=== PATIENT | male | born 1985 | race Caucasian/White ===

== ENCOUNTER 2016-08-22 15:24 | Emergency (ER) | payer OTHER ==
[~2016-08-22] VITALS: Ht 193 cm; Wt 99.0 kg
[~2016-08-22 15:24] MED LIST: NAPROXEN500 MG PO; NOHOMEMEDS; PEN-VEE K,VEET500 MG PO; SEROQUEL200 MG PO
[2016-08-22] MEDS ORDERED: PERCOCET 5/31 TABLET PO (16:44)
[2016-08-22] MEDS ORDERED: AMOXICILLIN500 MG PO (16:44)
[2016-08-22 17:11] VITALS: BP 140/89
== END 2016-08-22 17:14 | disposition home or self-care (01) ==
LOC: EME 15:24
DX: K02.9 Dental caries, unspecified (principal); F17.200 Nicotine dependence, unspecified, uncomplicated
CPT/HCPCS: 99281; 99283

== ENCOUNTER 2016-10-28 23:14 | Emergency (ER) | payer OTHER ==
[~2016-10-28] VITALS: Ht 193 cm; Wt 98.0 kg
[~2016-10-28 23:14] MED LIST changes: +AMOXICILLIN500 MG PO; +PERCOCET 5/31 TABLET PO
[2016-10-28 23:46] LABS: HEMATOCRIT 42.5 % (38.0-50.0); MCH 29.6 PG (29.0-34.0); MCHC 32.9 G/DL (30.0-36.0); MCV 89.9 FL (86-99); MEAN PLAT.VOLUME 9.8 uM^3 (9.0-12.4); PLATELET COUNT 247 K/uL (156-360); RBC DIS.WIDTH-CV 13.4 % (11.8-14.6); RBC DIS.WIDTH-SD 44.7 % (39-53); RED BLOOD COUNT 4.73 M/uL (4.00-5.50); WHITE BLOOD COUNT 7.6 K/uL (4.1-10.2)
[2016-10-29] LABS: CHLORIDE 104 mEq/L (99-109); POTASSIUM 4.2 mEq/L (3.7-5.4); SODIUM 139 mEq/L (136-147)
[2016-10-29 00:01] LABS: GLUCOSE 85 mg/dL (70-99)
[2016-10-29 00:03] LABS: ANION GAP 8 MEQ/L (2-14)
[2016-10-29 00:04] LABS: SERUM ETHYL ALCOHOL < 10 mg/dL
[2016-10-29 00:05] LABS: GFR ESTIMATE (CALCULATED) > 59 mL/min/
[2016-10-29 00:07] LABS: UREA NITROGEN (BUN) 13 mg/dL (9-23)
[2016-10-29 00:08] LABS: SALICYLATE < 5.0 MG/DL (15-30)
[2016-10-29 01:38] VITALS: BP 121/81
== END 2016-10-29 01:41 | disposition home or self-care (01) ==
LOC: EME 23:14
PROVIDERS: Emergency Medicine
DX: T42.4X1A Poisoning by benzodiazepines, accidental (unintentional), initial encounter (principal); T42.8X1A Poisoning by antiparkinsonism drugs and other central muscle-tone depressants, accidental (unintentional), initial encounter; R41.82 Altered mental status, unspecified; F19.20 Other psychoactive substance dependence, uncomplicated; F17.200 Nicotine dependence, unspecified, uncomplicated; F32.9 Major depressive disorder, single episode, unspecified; F31.9 Bipolar disorder, unspecified
CPT/HCPCS: 71010; 80048; 85027; 93005; 99281; 99285; G0480; J7030

== ENCOUNTER 2016-12-02 23:30 | Emergency (ER) | payer OTHER ==
[~2016-12-02] VITALS: Ht 193 cm; Wt 95.9 kg
[2016-12-02 23:59] LABS: HEMATOCRIT 41.2 % (38.0-50.0); MCH 29.3 PG (29.0-34.0); MCHC 32.8 G/DL (30.0-36.0); MCV 89.6 FL (86-99); MEAN PLAT.VOLUME 9.7 uM^3 (9.0-12.4); PLATELET COUNT 305 K/uL (156-360); RBC DIS.WIDTH-CV 13.6 % (11.8-14.6); RBC DIS.WIDTH-SD 44.8 % (39-53); WHITE BLOOD COUNT 6.9 K/uL (4.1-10.2)
[2016-12-03 00:08] LABS: CHLORIDE 106 mEq/L (99-109); POTASSIUM 4.7 mEq/L (3.7-5.4); SODIUM 141 mEq/L (136-147)
[2016-12-03 00:10] LABS: GLUCOSE 95 mg/dL (70-99)
[2016-12-03 00:11] LABS: ANION GAP 8 MEQ/L (2-14)
[2016-12-03 00:13] LABS: SERUM ETHYL ALCOHOL < 10 mg/dL
[2016-12-03 00:14] LABS: GFR ESTIMATE (CALCULATED) > 59 mL/min/; UREA NITROGEN (BUN) 16 mg/dL (9-23)
[2016-12-03 02:51] VITALS: BP 106/65
== END 2016-12-03 03:18 | disposition home or self-care (01) ==
LOC: TRA → EME → TRA 23:30 → EDBD 23:30 → TRA 12-03 03:18
PROVIDERS: Emergency Medicine
PROC: 0HQ0XZZ Repair Scalp Skin, External Approach (ICD-10-PCS; principal; 2016-12-03)
DX: S01.01XA Laceration without foreign body of scalp, initial encounter (principal); F17.200 Nicotine dependence, unspecified, uncomplicated; W19.XXXA Unspecified fall, initial encounter; Y92.009 Unspecified place in unspecified non-institutional (private) residence as the place of occurrence of the external cause; Z88.6 Allergy status to analgesic agent
CPT/HCPCS: 70450; 80048; 81003; 85027; 99281; 99284; G0480

== ENCOUNTER 2017-01-20 08:03 | Emergency (ER) | payer OTHER ==
[~2017-01-20] VITALS: Ht 190.5 cm; Wt 90.4 kg
[2017-01-20 08:38] LABS: HEMATOCRIT 46.3 % (38.0-50.0); MCH 29.4 PG (29.0-34.0); MCHC 33.3 G/DL (30.0-36.0); MCV 88.4 FL (86-99); MEAN PLAT.VOLUME 10.5 uM^3 (9.0-12.4); PLATELET COUNT 261 K/uL (156-360); RBC DIS.WIDTH-CV 13.6 % (11.8-14.6); RBC DIS.WIDTH-SD 44.2 % (39-53); RED BLOOD COUNT 5.24 M/uL (4.00-5.50); WHITE BLOOD COUNT 8.2 K/uL (4.1-10.2)
[2017-01-20 08:47] LABS: CHLORIDE 108 mEq/L (99-109); POTASSIUM 3.7 mEq/L (3.7-5.4); SODIUM 144 mEq/L (136-147)
[2017-01-20 08:49] LABS: GLUCOSE 117 mg/dL (70-99)
[2017-01-20 08:50] LABS: ANION GAP 11 MEQ/L (2-14)
[2017-01-20 08:51] LABS: TOTAL BILIRUBIN 0.7 mg/dL (0.0-1.0)
[2017-01-20 08:53] LABS: ALKALINE PHOSPHATASE 61 IU/L (3-129); GFR ESTIMATE (CALCULATED) > 59 mL/min/
[2017-01-20 08:54] LABS: UREA NITROGEN (BUN) 9 mg/dL (9-23)
[2017-01-20 10:05] VITALS: BP 142/92
== END 2017-01-20 10:12 | disposition left against medical advice (07) ==
LOC: EME 08:03
PROVIDERS: Nurse Practitioner Family
DX: R10.32 Left lower quadrant pain (principal); F32.9 Major depressive disorder, single episode, unspecified; Z88.6 Allergy status to analgesic agent; F17.200 Nicotine dependence, unspecified, uncomplicated
CPT/HCPCS: 74000; 80053; 81003; 85027; 99281; 99284; J1885; J2405; J7030

== ENCOUNTER 2017-05-02 21:15 | Emergency (ER) | payer OTHER ==
[~2017-05-02] VITALS: Ht 193 cm; Wt 87.3 kg
[2017-05-02] MEDS ORDERED: NAPROSYN500 MG PO (22:58)
[2017-05-02] MEDS ORDERED: CLEOCIN150 MG PO (22:58)
[2017-05-02 23:18] VITALS: BP 152/76
== END 2017-05-02 23:19 | disposition home or self-care (01) ==
LOC: RME 21:15 → EME 21:15 → RME 23:19
PROC: 3E0T3BZ Introduction of Anesthetic Agent into Peripheral Nerves and Plexi, Percutaneous Approach (ICD-10-PCS; principal; 2017-05-02)
DX: K08.89 Other specified disorders of teeth and supporting structures (principal); K02.9 Dental caries, unspecified; F17.200 Nicotine dependence, unspecified, uncomplicated
CPT/HCPCS: 99281; 99284

== ENCOUNTER 2017-09-08 02:16 | Emergency (ER) | payer OTHER ==
[~2017-09-08] VITALS: Ht 190.5 cm; Wt 86.2 kg
[~2017-09-08 02:16] MED LIST changes: +CLEOCIN150 MG PO; +NAPROSYN500 MG PO
[2017-09-08 03:17] LABS: BASOPHIL COUNT 0.1 K/uL (0-0.1); EOSINOPHIL COUNT 0.2 K/uL (0-0.3); HEMATOCRIT 41.8 % (38.0-50.0); HEMOGLOBIN 14.2 G/DL (12.5-16.6); LYMPHOCYTE (%) 50.6 % (15-42); MCH 30.7 PG (29.0-34.0); MCV 90.5 FL (86-99); MONOCYTE (%) 7.7 % (3-12); MONOCYTE COUNT 0.5 K/uL (0-0.8); NEUTROPHIL (%) 36.7 % (45-76); NEUTROPHIL COUNT 2.2 K/uL (1.8-6.4); PLATELET COUNT 245 K/uL (156-360); RBC DIS.WIDTH-CV 13.2 % (11.8-14.6); RBC DIS.WIDTH-SD 44.2 % (39-53); RED BLOOD COUNT 4.62 M/uL (4.00-5.50)
[2017-09-08 03:25] LABS: ALBUMIN 4.7 g/dL (3.2-4.8); CHLORIDE 105 mEq/L (99-109); POTASSIUM 4.4 mEq/L (3.7-5.4); SODIUM 143 mEq/L (136-147)
[2017-09-08 03:28] LABS: GLUCOSE 81 mg/dL (70-99); TOTAL PROTEIN 7.8 g/dL (6.4-8.3)
[2017-09-08 03:30] LABS: TOTAL BILIRUBIN 0.8 mg/dL (0.0-1.0)
[2017-09-08 03:31] LABS: ALKALINE PHOSPHATASE 60 IU/L (3-129); SERUM ETHYL ALCOHOL 67 mg/dL
[2017-09-08 03:32] LABS: CREATININE 0.9 mg/dL (0.6-1.3); GFR ESTIMATE (CALCULATED) > 59 mL/min/ (58.99-99999)
[2017-09-08 03:33] LABS: AST (GOT) 17 IU/L (2-34); UREA NITROGEN (BUN) 11 mg/dL (9-23)
[2017-09-08 03:34] LABS: ALT (GPT) 16 IU/L (3-49)
[2017-09-08] MEDS ORDERED: SEROQUEL50 MG PO (04:38)
[2017-09-08 04:57] VITALS: BP 123/80
== END 2017-09-08 04:57 | disposition home or self-care (01) ==
LOC: EME 02:16
PROVIDERS: Emergency Medicine
DX: F31.9 Bipolar disorder, unspecified (principal); F43.21 Adjustment disorder with depressed mood; R51 Headache; F10.99 Alcohol use, unspecified with unspecified alcohol-induced disorder; Y90.3 Blood alcohol level of 60-79 mg/100 ml; F17.200 Nicotine dependence, unspecified, uncomplicated
CPT/HCPCS: 80053; 85025; 90837; 99281; 99285; G0480; J2765

== ENCOUNTER 2017-11-30 14:27 | Emergency (ER) | payer OTHER ==
[~2017-11-30] VITALS: Ht 190.5 cm; Wt 81.8 kg
[~2017-11-30 14:27] MED LIST changes: +SEROQUEL50 MG PO
[2017-11-30 15:17] LABS: HEMATOCRIT 43.5 % (38.0-50.0); HEMOGLOBIN 14.9 G/DL (12.5-16.6); MCHC 34.3 G/DL (30.0-36.0); MCV 90.4 FL (86-99); PLATELET COUNT 211 K/uL (156-360); RBC DIS.WIDTH-CV 13.1 % (11.8-14.6); RBC DIS.WIDTH-SD 43.3 % (39-53); RED BLOOD COUNT 4.81 M/uL (4.00-5.50); WHITE BLOOD COUNT 6.3 K/uL (4.1-10.2)
[2017-11-30 15:38] LABS: ALBUMIN 4.4 g/dL (3.2-4.8); CHLORIDE 107 mEq/L (99-109); POTASSIUM 4.2 mEq/L (3.7-5.4); SODIUM 142 mEq/L (136-147)
[2017-11-30 15:40] LABS: GLUCOSE 82 mg/dL (70-99); TOTAL PROTEIN 7.5 g/dL (6.4-8.3)
[2017-11-30 15:42] LABS: TOTAL BILIRUBIN 0.6 mg/dL (0.0-1.0)
[2017-11-30 15:43] LABS: SERUM ETHYL ALCOHOL < 10 mg/dL
[2017-11-30 15:44] LABS: ALKALINE PHOSPHATASE 65 IU/L (3-129); CREATININE 0.8 mg/dL (0.6-1.3); GFR ESTIMATE (CALCULATED) > 59 mL/min/ (58.99-99999)
[2017-11-30 15:45] LABS: UREA NITROGEN (BUN) 11 mg/dL (9-23)
[2017-11-30 15:48] LABS: APPEARANCE CLEAR ((CLEAR)); BILIRUBIN NEGATIVE; BLOOD NEGATIVE; COLOR YELLOW ((YELLOW)); GLUCOSE (STRIP) NEGATIVE; KETONES NEGATIVE; LEUKOCYTES NEGATIVE; NITRITE NEGATIVE; PROTEIN (STRIP) NEGATIVE; SPECIFIC GRAVITY 1.013 (1.000-1.030); UROBILINOGEN 0.2 MG/DL (0.2-1.0)
[2017-11-30 16:02] LABS: AMPHETAMINE PRESUMPTIVE POSITIVE (500 ng/mL); BARBITURATES NEGATIVE (200 ng/mL); BENZODIAZEPINES PRESUMPTIVE POSITIVE (150 ng/mL); BUPRENORPHINE NEGATIVE (10 ng/mL); COCAINE NEGATIVE (150 ng/mL); METHADONE NEGATIVE (200 ng/mL); METHAMPHETAMINE NEGATIVE (500 ng/mL); OPIATES (MORPHINE) NEGATIVE (100 ng/mL); OXYCODONE NEGATIVE (100 ng/mL); PHENCYCLIDINE NEGATIVE (25 ng/mL); PROPOXYPHENE NEGATIVE (300 ng/mL); THC CANNABINOIDS PRESUMPTIVE POSITIVE (50 ng/mL); TRICYCLIC ANTIDEPRESSANTS NEGATIVE (300 ng/mL)
[2017-11-30 16:03] LABS: AST (GOT) 17 IU/L (2-34)
[2017-11-30 16:04] LABS: ALT (GPT) 12 IU/L (3-49)
[2017-11-30 16:45] LABS: BENZODIAZEPINES, URINE SCREEN POSITIVE (200 ng/mL)
[2017-11-30 17:10] VITALS: BP 121/71
== END 2017-11-30 17:30 | disposition home or self-care (01) ==
LOC: EME 14:27
PROVIDERS: Emergency Medicine
DX: F19.10 Other psychoactive substance abuse, uncomplicated (principal); F32.9 Major depressive disorder, single episode, unspecified; F17.200 Nicotine dependence, unspecified, uncomplicated
CPT/HCPCS: 80053; 81003; 84999; 85027; 93005; 99281; 99285; G0480